=== PATIENT | female | born 1985 | race Caucasian/White ===

== ENCOUNTER 2017-06-18 12:41 | Emergency (ER) | payer SELFPAY ==
--- NOTE | 2017-06-18 13:33 | ER Document Report ---
ED Medical Screen (RME) - General Chief Complaint: Eye Problem Stated Complaint: SKIN PROBLEM Time Seen by Provider: 06/18/17 13:27 Mode of Arrival: Ambulatory Information source: Patient Notes: 31-year-old female who struck her head. 3 days ago and causing abrasion presents with complaints of swelling around the left eye that occurred today. I have greeted and performed a rapid initial assessment of this patient. A comprehensive ED assessment and evaluation of the patient, analysis of test results and completion of the medical decision making process will be conducted by additional ED providers. PHYSICAL EXAMINATION: GENERAL: Well-appearing, well-nourished and in no acute distress. HEAD: left orbital cellulitis, left forehead lac with drainage , erythema ENT: Nares patent NECK: Normal range of motion LUNGS: No respiratory distress Musculoskeletal: Normal range of motion NEUROLOGICAL: Normal speech, normal gait. PSYCH: Normal mood, normal affect. TRAVEL OUTSIDE OF THE [place] IN LAST 30 DAYS: No - Related Data Allergies/Adverse Reactions: No Known Allergies Allergy (Verified 06/18/17 13:20) Past Medical History - Social History Frequency of alcohol use: Social Drug Abuse: None Renal/ Medical History: Denies: Hx Peritoneal Dialysis
[2017-06-18 13:59] LABS: ABSOLUTE BASOPHILS # (AUTO) 0.1 10^3/uL (0.0-0.2); ABSOLUTE EOSINOPHILS # (AUTO) 0.1 10^3/uL (0.0-0.6); ABSOLUTE LYMPHOCYTES (AUTO) 2.1 10^3/uL (0.5-4.7); ABSOLUTE MONOCYTES (AUTO) 0.9 10^3/uL (0.1-1.4); ABSOLUTE NEUT (AUTO) 8.5 10^3/uL (1.7-8.2); BASOPHILS % (AUTO) 0.7 % (0-2); EOSINOPHILS % (AUTO) 0.9 % (0-6); HEMATOCRIT 41.1 % (36.0-47.0); HEMOGLOBIN 14.1 g/dL (12.0-15.5); LYMPHOCYTES % (AUTO) 17.8 % (13-45); MEAN CORPUSCULAR HEMOGLOBIN 32.3 pg (27.0-33.4); MEAN CORPUSCULAR HGB CONC 34.2 g/dL (32.0-36.0); MEAN CORPUSCULAR VOLUME 95 fl (80-97); MONOCYTES % (AUTO) 7.8 % (3-13); PLATELET COUNT 285 10^3/uL (150-450); RED BLOOD COUNT 4.35 10^6/uL (3.72-5.28); RED CELL DISTRIBUTION WIDTH 13.3 % (11.5-14.0); SEGMENTED NEUTROPHILS % (AUTO) 72.8 % (42-78); TOTAL CELLS COUNTED % (AUTO) 100 %; WHITE BLOOD COUNT 11.6 10^3/uL (4.0-10.5)
[2017-06-18 14:22] LABS: ALANINE AMINOTRANSFERASE 35 U/L (9-52); ALBUMIN 4.9 g/dL (3.5-5.0); ALKALINE PHOSPHATASE 110 U/L (38-126); ANION GAP 14 (5-19); ASPARTATE AMINO TRANSFERASE 43 U/L (14-36); BILIRUBIN,DIRECT 0.3 mg/dL (0.0-0.4); BILIRUBIN,TOTAL 0.7 mg/dL (0.2-1.3); BLOOD UREA NITROGEN 6 mg/dL (7-20); CALCIUM 9.9 mg/dL (8.4-10.2); CARBON DIOXIDE 24 mmol/L (22-30); CHLORIDE 102 mmol/L (98-107); GLUCOSE 75 mg/dL (75-110); POTASSIUM 4.4 mmol/L (3.6-5.0); SODIUM 139.9 mmol/L (137-145); TOTAL PROTEIN 8.3 g/dL (6.3-8.2)
--- NOTE | 2017-06-18 14:32 | RADIOLOGY REPORT (SQ) ---
EXAM DESCRIPTION: CT ORBIT/SELLA WITH COMPLETED DATE/TIME: 06/18/2017 1:58 pm REASON FOR STUDY: left orbital cellulitis, left forehead lac COMPARISON: None. TECHNIQUE: Post IV contrast images through the orbits windowed for bone and soft tissue. Additional coronal and sagittal reconstructed images reviewed. All images stored on PACS. All CT scanners at this facility use dose modulation, iterative reconstruction, and/or weight based d osing when appropriate to reduce radiation dose to as low as reasonably achievable (ALARA). [facility]: Dose Right [facility]: CareDose [facility]: Dose Right [facility]: Teradose 4D [facility]: CardioVIP CONTRAST TYPE AND DOSE: contrast/concentration: Isovue 370.00 mg/ml; Total Contrast Delivered: 50.0 ml; Total Saline Delivered: 50.0 ml RENAL FUNCTION: None required. The patient is less than 50 years old. RADIATION DOSE: CT Rad equipment meets quality standard of care and radiation dose reduction techniq ues were employed. CTDIvol: 30.4 mGy. DLP: 338 mGy-cm. . LIMITATIONS: None. FINDINGS: There is diffuse left facial pre maxillary, preseptal orbital, and left forehead skin thic kening and inflammatory stranding in the subcutaneous fat. No rim enhancing abscess. No extension o f inflammation/infection into the postseptal orbital soft tissues. No abnormal left globe contrast-e nhancement. FACIAL BONES: No fracture or bone lesion. ORBITS: Intact. No fracture. Symmetric intact globes and retroorbital soft tissues. PARANASAL SINUSES: Clear. No significant mucosal thickening, mass or fluid. SOFT TISSUES: As above. INFERIOR BRAIN: Limited view. No acute findings. OTHER: No other significant finding. IMPRESSION: Left facial preseptal orbital cellulitis extending into the left forehead superficial so ft tissues and left premaxillary facial soft tissues. No well circumscribed abscess. No deep left o rbital inflammatory change TECHNICAL DOCUMENTATION: JOB ID: [id number] Quality ID # [id number]: Final reports with documentation of one or more dose reduction techniques (e.g., Au tomated exposure control, adjustment of the mA and/or kV according to patient size, use of iterative reconstruction technique) 2010 [employer]- All Rights Reserved
--- NOTE | 2017-06-18 14:35 | ER Document Report ---
ED Skin Rash/Insect Bite/Abscs - General Chief Complaint: Eye Problem Stated Complaint: SKIN PROBLEM Time Seen by Provider: 06/18/17 13:27 Mode of Arrival: Ambulatory Notes: This is a 31-year-old female patient. Scratched her forehead the other day. Now has redness and swelling to the left periorbital area. Denies any pain with eye movement. No fever. Was hospitalized approximately 6 months ago for a right leg cellulitis. Has history of cellulitis. Pain is moderate but not severe. Cannot see out of the left eye because it is swollen. Endorses that she is living in her car at this time and is homeless. TRAVEL OUTSIDE OF THE [place] IN LAST 30 DAYS: No - HPI Patient complains to provider of: Skin rash/lesion, Tender/swollen area Severity: Mild Pain Level: 1 Skin Character: Erythema, Swelling Skin Temperature: Warm - Related Data Allergies/Adverse Reactions: No Known Allergies Allergy (Verified 06/18/17 13:20) Past Medical History - General Information source: Patient - Social History Smoking Status: Current Every Day Smoker Cigarette use (# per day): Yes Frequency of alcohol use: Social Drug Abuse: None Lives with: Friend Family History: None Patient has suicidal ideation: No Patient has homicidal ideation: No Renal/ Medical History: Denies: Hx Peritoneal Dialysis Review of Systems - Review of Systems Constitutional: denies: Fever, Malaise, Weakness EENT: See HPI, Eye pain. denies: Nose congestion, Nose discharge Cardiovascular: No symptoms reported. denies: Chest pain, Palpitations, Heart racing Gastrointestinal: denies: Abdominal pain, Nausea, Vomiting Hematologic/Lymphatic: See HPI, Other - Redness and swelling around the left eye Physical Exam - Vital signs Vitals: Temp Pulse Resp BP Pulse Ox 98.2 F 99 14 128/80 H 99 06/18/17 14:07 06/18/17 14:07 06/18/17 14:07 06/18/17 14:07 06/18/17 14:07 Interpretation: Normal. No: Tachycardic, Tachypneic - HEENT Head: Normocephalic Eyes: Other - Significant erythema and edema noted on the left upper and lower eyelids. There does appear to be some degree of ecchymosis. There is a small area of abrasion on the left eyebrow area lateral aspect. There is no draining abscess noted. Patient has full range of motion of the eyes without pain. NO involvement of the conjunctiva or sclera appear - Respiratory Respiratory status: No respiratory distress Chest status: Nontender Breath sounds: Normal Chest palpation: Normal - Cardiovascular Rhythm: Regular Heart sounds: Normal auscultation Murmur: No - Extremities General upper extremity: Normal inspection, Nontender, Normal color, Normal ROM , Normal temperature General lower extremity: Normal inspection, Nontender, Normal color, Normal ROM , Normal temperature, Normal weight bearing. No: Krista's sign - Neurological Neuro grossly intact: Yes Cognition: Normal Orientation: AAOx4 Yaakov Coma Scale Eye Opening: Spontaneous Yaakov Coma Scale Verbal: Oriented Barrett Coma Scale Motor: Obeys Commands Barrett Coma Scale Total: 15 Speech: Normal Motor strength normal: LUE, RUE, LLE, RLE Sensory: Normal - Skin Skin Temperature: Warm Skin Moisture: Dry Skin Color: Other - There is cellulitic appearance perceptively around the left orbit. Course - Re-evaluation Re-evalutation: 06/18/17 14:49 CT scan reveals preseptal swelling consistent with a preseptal cellulitis. There is no retro-orbital involvement. No obvious abscess. Patient does have IVs will give her a dose of Rocephin and Bactrim while in the emergency department. Toradol for pain. Will attempt to see if we can get some help with her medication at discharge per - Vital Signs Vital signs: Temp Pulse Resp BP Pulse Ox 98.2 F 99 14 128/80 H 99 06/18/17 14:07 06/18/17 14:07 06/18/17 14:07 06/18/17 14:07 06/18/17 14:07 - Laboratory Result Diagrams: 06/18/17 13:43 06/18/17 13:43 Laboratory results interpreted by me: 06/18/17 06/18/17 13:43 13:43 WBC 11.6 H Absolute Neutrophils 8.5 H BUN 6 L Creatinine 0.48 L AST 43 H Total Protein 8.3 H Discharge - Discharge Clinical Impression: Cellulitis of left orbital region Condition: Good Disposition: HOME, SELF-CARE Instructions: Antibiotic Therapy ([facility]) Additional Instructions: Cellulitis You have an infection of your skin and underlying soft tissues called cellulitis. This is due to bacteria, which can enter through any break in the skin, or even through an irritated hair follicle. Untreated, cellulitis will usually worsen. Antibiotics are required. Usually, warm packs or warm soaks, and elevation of the infected area are recommended. You should start getting better within 24 to 36 hours. Most infections respond quickly to the right medication. Follow-up care is important, however, to check for abscess (boil) formation, unsuspected foreign body, or resistant infection. If you develop fever, chills, or if the area of infection is becoming rapidly more swollen or painful, call the doctor at once. Of note if you begin to develop pain with eye movement please return immediately as the infection could be getting behind the eyeball. Prescriptions: Cephalexin Monohydrate [Keflex 500 mg Capsule] 500 mg PO Q6H 10 Days #40 capsule Ibuprofen [Motrin 600 Mg Tablet] 600 mg PO TID #15 tablet Sulfamethoxazole/Trimethoprim [Bactrim Ds Tablet] 1 each PO BID 10 Days #20 tablet
[2017-06-18] MEDS ORDERED: KETOROLAC TROMETHAMINE INJ/PF 30 MG/1 ML SDV IV ONE (14:42)
[2017-06-18] MEDS ORDERED: SULFAMETHOXAZOLE/TRIMETHOPRIM 800-160 MG TABLET PO ONE (14:43)
[2017-06-18] MEDS ORDERED: CEFTRIAXONE 1 GM/D5W RTU 1 GM/50 ML RTUPB IV ONE (14:43)
[2017-06-18] MEDS ORDERED: CEFTRIAXONE SODIUM 1,000 MG in DEXTROSE 5%-WATER 50 ML IV ONE (15:30)
[2017-06-18 15:50] VITALS: BP 125/76
== END 2017-06-18 15:50 | disposition home or self-care (01) ==
LOC: ER 12:41
DX: H05.012 Cellulitis of left orbit (principal); R22.0 Localized swelling, mass and lump, head; F17.210 Nicotine dependence, cigarettes, uncomplicated; Z59.0 Homelessness
CPT/HCPCS: 99284; 96375; 96365; 36415; 85025; 80053; 70481; J1885; J0696